=== PATIENT | female | born 1995 | race African-American/Black ===

== ENCOUNTER → 2020-07-29 | Outpatient (CLI) | payer SELFPAY | LOC: OD 16:59 | PROVIDERS: ATTEND Nurse Practitioner Family | DX: Z20.2 Contact with and (suspected) exposure to infections with a predominantly sexual mode of transmission (principal); Z11.3 Encounter for screening for infections with a predominantly sexual mode of transmission | CPT/HCPCS: 36415; 86695; 86696 ==